=== PATIENT | male | born 1970 | race Caucasian/White ===

== ENCOUNTER 2023-01-11 12:49 | Emergency (ER) | payer BC, SELFPAY ==
[2023-01-11] VITALS (39 sets, daily range): BP systolic 119–144; BP diastolic 72–89; PULSE 56–87; RESP 12–28; TEMP 36.8; O2SAT 98
--- NOTE | 2023-01-11 13:00 | DI.CT_ITS ---
Exam(s) CT HEAD CERVICAL SPINE WO EXAM: CT HEAD CERVICAL SPINE WO CLINICAL HISTORY: Trauma. TECHNIQUE: Imaging Protocol: Axial computed tomography images with coronal and sagittal reformatted images were created and reviewed COMPARISON: No exams were available for comparison FINDINGS: BRAIN: There are no skull fractures nor fluid in the visualized paranasal sinuses. There is no evidence of intracranial hemorrhage, mass effect, or shift of midline structures. There are no extra-axial fluid collections. The ventricles are not enlarged or shifted and there is no blo od within the ventricular system nor within the basal cisterns. CERVICAL SPINE: There is no evidence of fracture nor listhesis. No significant prevertebral soft tissue swelling. Chronic disc space narrowing C5-6. Minimal degenerative changes in the facet joints. There is no significant facet joint malalignment. No significant osseous lesions evident. There is gas in the deep tissues of the lower neck and left supraclavicular region. See separate dic tation. IMPRESSION: No acute intracranial findings on this noninfused CT scan of the brain. No evidence of cervical spine fracture, malalignment, nor acute compromise of the cervical spinal can al. See separate dictations. RADIATION DOSE DELIVERED: 1,544.59mGy.cm Total DLP DATA REPOSITORY: All CT scans at this facility are submitted to the National Radiology Data Registry (NRDR) Dose Index Registry (DIR) with the [employer] (ACR). RADIATION OPTIMIZATION: All CT scans at this facility use at least one of these dose optimization te chniques: automated exposure control; mA and/or kV adjustment per patient size (includes targeted exa ms where dose is matched to clinical indication); or iterative reconstruction.
--- NOTE | 2023-01-11 13:09 | DI.CT_ITS ---
Exam(s) CT THORACIC LUMBAR SPINE REC EXAM: CT THORACIC LUMBAR SPINE REC CLINICAL HISTORY: Trauma TECHNIQUE: COMPARISON: No exams were available for comparison FINDINGS: There are no acute appearing fractures of lumbar vertebral bodies. There is a chronic appearing mild compression fracture of L1 and Schmorl's node invagination the mid aspect of the superior endplate of T11. No acute fractures evident in the lumbar vertebral bodies. No osseous lesions. IMPRESSION: No acute fractures in the lumbosacral spine.
--- NOTE | 2023-01-11 13:09 | DI.CT_ITS ---
Exam(s) CT CHEST/ABD/PEL W EXAM: CT CHEST/ABD/PEL W CLINICAL HISTORY: Trauma. TECHNIQUE: Imaging Protocol: Axial computed tomography images with coronal and sagittal reformatted images were created and reviewed CONTRAST MATERIAL: Intravenous: Omnipaque 350 Contrast volume:100 ml Oral: None COMPARISON: CT CT THORACIC LUMBAR SPINE REC from 01/11/2023 FINDINGS: CHEST: OSSEOUS: There is a mildly displaced fracture of the posterior aspect of the left 4th rib. Also subt le suggestion of fracture of the posterior aspect of the adjacent left 3rd rib. There is air in becky cent deep soft tissues over the left side of the chest wall. LUNGS: There is a prominent left side pneumothorax approximately 50 percent. Also some lung contusio n-consolidation in the lower lobe. The opposite-right lung is clear. No pleural effusions on either side. No pneumothorax on the right side. No rib fractures on the right side.. MEDIASTINUM: No evidence of sternal fracture nor mediastinal hematoma. No incidental hilar nor media stinal adenopathy.. Visualized thyroid unremarkable.There is some air in the left side and posterior aspect of the mediastinum, adjacent to the esophagus. CARDIAC: Heart size is normal. There is no pericardial effusion.Thoracic aorta is intact and there i s no dissection. OSSEOUS: No vertebral body fractures in the thoracic spinal column. Mild anterior wedging of L1 whic h does not appear acute.. ABDOMEN: No ascites and no evidence of mesenteric nor bowel wall hematoma. LIVER: There are no focal hepatic lesions nor dilatation of intrahepatic ducts. No evidence of liver laceration. GALLBLADDER/BILIARY: No obvious gallbladder pathology. CBD is not dilated. PANCREAS: No evidence of pancreatic mass nor dilatation of the pancreatic duct. SPLEEN: Spleen size normal. No laceration. No lesions. Splenic and portal veins are patent. ADRENALS: There are no significant adrenal masses. KIDNEYS: No renal lacerations nor subcapsular hematomas. No cysts nor masses. No calculi. No hydro nephrosis. No hydroureter.. ABDOMINAL AORTA: Abdominal aorta is not enlarged. LYMPH NODES: There is no retroperitoneal nor paraaortic adenopathy. ABDOMINAL WALL: No evidence of significant anterior abdominal wall nor inguinal hernia. GI: There is no evidence of bowel obstruction.The colon is collapsed. Appears to exhibit diffuse fat halo sign which may be exaggerated by the lack of colon distention with oral contrast versus is auto glass technician taran colitis. There are few sigmoid diverticuli but no evidence of acute diverticulitis. PELVIS: LYMPH NODES: There is no intrapelvic nor inguinal adenopathy. GI: No evidence of appendicitis.No evidence of sigmoid diverticulitis. URINARY BLADDER: Normal size. No intraluminal clots. No calculi. No masses. REPRODUCTIVE: Prostate gland not enlarged. Seminal vesicles unremarkable. OSSEOUS: No acute fractures. Mild chronic wedge compression fracture of L1. Schmorl's node invagina tion superior endplate of T12 but no fracture at this level. IMPRESSION: 1. There are fractures of the left 3rd and 4th ribs posteriorly and there is a prominent ipsilateral left pneumothorax, greater than 50 percent. No shift. Some lung contusion noted. Opposite-right tobi ng appears unremarkable. 2. No significant trauma sequelae in the abdomen and pelvis. Nor organ lacerations. No mesenteric n or bowel wall hematoma no ascites. RADIATION DOSE DELIVERED: Total DLP DATA REPOSITORY: All CT scans at this facility are submitted to the National Radiology Data Registry (NRDR) Dose Index Registry (DIR) with the [employer] (ACR). RADIATION OPTIMIZATION: All CT scans at this facility use at least one of these dose optimization te chniques: automated exposure control; mA and/or kV adjustment per patient size (includes targeted exa ms where dose is matched to clinical indication); or iterative reconstruction.
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
[2023-01-11] MEDS: diazePAM 10 MG/2 ML SYR 5 MG IVP (13:20)
[2023-01-11 13:33] LABS: Abs Immature Grans 0.09 10^3/uL (0.0-0.06); Absolute Basophil Count 0.04 10^3/uL (0.0-0.2); Absolute Lymphocyte Count 1.06 10^3/uL (1.2-3.4); Absolute Monocyte Count 0.99 10^3/uL (0.1-0.8); Absolute Neutrophil Count 12.56 10^3/uL (1.2-6.7); Basophils % 0.3; Eosinophils % 0.1; HCT 42.9 % (40.0-50.0); HGB 14.3 g/dL (13.5-17.5); Immature Grans % 0.6; Lymphocytes % 7.2; MCH 31.1 pg (27.0-33.0); MCHC 33.3 % (32.0-36.0); MCV 93 fL (80-95); MPV 11.1 fL (8.0-11.0); Monocytes % 6.7; Neutrophils % 85.1; Platelet Count 191 10^3/uL (130-400); RDW 12.3 % (11.8-14.1); RDW-SD 42.4 fL; WBC 14.76 10^3/uL (4.4-10.8)
[2023-01-11 13:37] LABS: Absolute Eosinophil Count 0.01 10^3/uL (0.0-0.7)
[2023-01-11 13:50] LABS: ALT 35 U/L (16-63); AST 22 U/L (15-37); Albumin 4.1 g/dL (3.4-5.0); Alkaline Phosphatase 47 U/L (46-116); Anion Gap 9.9 mmol/L (3-11); BUN 14 mg/dL (7-18); Bilirubin, Total 0.8 mg/dL (0.2-1.0); CO2 26.1 mmol/L (21.0-32.0); CREATININE 0.9 mg/dL (0.70-1.30); Calcium 9.2 mg/dL (8.5-10.1); Chloride 104 mmol/L (98-107); Estimated GFR 104.05 (mL/min/1.73m2); Glucose 129 mg/dL (74-106); Lipase 19 U/L (16-77); Magnesium 1.9 mg/dL (1.8-2.4); Potassium 3.5 mmol/L (3.5-5.1); Sodium 140 mmol/L (136-145); Total Protein 7.6 g/dL (6.4-8.2); Troponin I < 50 ng/L (<or=60)
[2023-01-11] MEDS: Omnipaque 350 MG/ML 100 ML BTL IJ (14:49)
[2023-01-11] MEDS: Normal Saline - Diluent 50 ML VIAL IJ (14:49)
--- NOTE | 2023-01-11 15:34 | DI.VRAD_ITS ---
PROCEDURE INFORMATION: Exam: CT Thoracic Spine Without Contrast Exam date and time: 01/11/2023 2:24 PM Age: 52 years old Clinical indication: Injury or trauma; Fall TECHNIQUE: Imaging protocol: Computed tomography of the thoracic spine without contrast. COMPARISON: CT HEAD CERVICAL SPINE WO 01/11/2023 2:21 PM FINDINGS: Bones/joints: There are acute nondisplaced fractures of the posterior left 3rd and 4th ribs. Soft tissues: Unremarkable. Lungs: Large left pneumothorax with atelectasis of the collapsed lung. IMPRESSION: No acute thoracic spine fracture. Acute nondisplaced fractures of the posterior left 3rd and 4th ribs. Large left pneumothorax with atelectasis of the collapsed lung. PROCEDURE INFORMATION: Exam: CT Lumbar Spine Without Contrast Exam date and time: 01/11/2023 2:24 PM Age: 52 years old Clinical indication: Injury or trauma; Fall TECHNIQUE: Imaging protocol: Computed tomography of the lumbar spine without contrast. COMPARISON: No relevant prior studies available. FINDINGS: Bones/joints: No acute fracture. Normal alignment. Mild levocurvature L1-L2: No significant disc bulge or herniation. No severe spinal canal stenosis. No significant neural foraminal narrowing. L2-L3: No significant disc bulge or herniation. No severe spinal canal stenosis. No significant neural foraminal narrowing. L3-L4: No significant disc bulge or herniation. No severe spinal canal stenosis. Bilateral foraminal stenosis L4-L5: No significant disc bulge or herniation. No severe spinal canal stenosis. Bilateral foraminal stenosis L5-S1: No significant disc bulge or herniation. No severe spinal canal stenosis. Bilateral foraminal stenosis. Soft tissues: Unremarkable. IMPRESSION: Degenerative changes, without acute abnormality. Dictated and Authenticated by: Екатерина Sprague MD. Ordering:MARY Claudio MD
--- NOTE | 2023-01-11 16:03 | DI.VRAD_ITS ---
Addendum created by Екатерина Sprague MD on 01/11/2023 4:03:18 PM EDT: Findings discussed with MARCOS BEDOLLA 01/11/2023 4:03 PM EDT. Initial report created on 01/11/2023 4:02:42 PM EDT: PROCEDURE INFORMATION: Exam: CT Chest With Contrast; Diagnostic Exam date and time: 01/11/2023 2:24 PM Age: 52 years old Clinical indication: Injury or trauma; Fall TECHNIQUE: Imaging protocol: Diagnostic computed tomography of the chest with contrast. COMPARISON: CT HEAD CERVICAL SPINE WO 01/11/2023 2:21 PM FINDINGS: Lungs: Atelectatic changes in the collapsed left lung. Pleural spaces: There is a moderate left pneumothorax of proximally 50%. Heart: Unremarkable. No cardiomegaly. No pericardial effusion. Lymph nodes: Unremarkable. No enlarged lymph nodes. Vasculature: Unremarkable. No aortic aneurysm. Bones/joints: Acute fracture of the posterior left 3rd and 4th ribs. Soft tissues: Unremarkable. IMPRESSION: Large left pneumothorax. Acute fracture of the posterior left 3rd and 4th ribs. PROCEDURE INFORMATION: Exam: CT Abdomen And Pelvis With Contrast Exam date and time: 01/11/2023 2:24 PM Age: 52 years old Clinical indication: Injury or trauma; Fall TECHNIQUE: Imaging protocol: Computed tomography of the abdomen and pelvis with contrast. COMPARISON: No relevant prior studies available. FINDINGS: Liver: There is hepatomegaly and fatty infiltration of the liver. No mass. Gallbladder and bile ducts: Normal. No calcified stones. No ductal dilation. Pancreas: Normal. No ductal dilation. Spleen: Normal. No splenomegaly. Adrenal glands: Normal. No mass. Kidneys and ureters: Normal. No hydronephrosis. Stomach and bowel: There is diverticular disease of the colon, without evidence of acute diverticulitis. No perforation, or abscess. No signs or history of bleeding provided. No obstruction. No mucosal thickening. Appendix: No evidence of appendicitis. A normal appendix is identified. Intraperitoneal space: Unremarkable. No free air. No significant fluid collection. Vasculature: Unremarkable. No abdominal aortic aneurysm. Lymph nodes: Unremarkable. No enlarged lymph nodes. Urinary bladder: Unremarkable as visualized. Reproductive: Unremarkable as visualized. Bones/joints: Unremarkable. No acute fracture. Soft tissues: There is a small fat-containing supraumbilical ventral hernia. IMPRESSION: No acute findings in the abdomen or pelvis. Additional findings as described. Dictated and Authenticated by: Екатерина Sprague MD. Ordering:MARY Claudio MD
[2023-01-11] MEDS: fentaNYL 100 MCG/2 ML VIAL 50 MCG IVP (16:13)
[2023-01-11] MEDS: LORazepam 2 MG/ML VIAL 0.5 MG IVP (16:15)
[2023-01-11] MEDS: Lidocaine 1% Multi-Dose 50 ML VIAL (17:21)
--- NOTE | 2023-01-11 17:30 | DI.RAD_ITS ---
Exam(s) XR PORTABLE CHEST AP POST LINE EXAM: XR PORTABLE CHEST AP POST LINE CLINICAL HISTORY: s/p chest tube placement. TECHNIQUE: 2D digital imaging was performed. COMPARISON: CT scan earlier same date. FINDINGS: Single AP portable view. There has been interval placement of a pigtail catheter in the lateral left pleural space and there i s significant re-expansion of the left lung evident. Approximately 15 percent remaining pneumothorax . Subcutaneous air is noted over left hemithorax. No new findings in the opposite-right lung. No shift of midline structures. Heart size upper normal. No mediastinal widening. IMPRESSION: Pigtail catheter in lateral left pleural space with significant re-expansion of the left lung. Betzy byrne size of the left pneumothorax is approximately 15 percent DATA REPOSITORY: RADIATION DOSE DELIVERED:
--- NOTE | 2023-01-11 18:16 | PROC.BLANK_ITS ---
Date of service: 01/11/23 Time of Service: 18:16 Procedures Chest Tube Chest Tube 1: Chest Tube Location: anterior axillary line and forth interspace Size of English Tube (mm): 14 Chest Tube Prep: betadine prep and sterile drapes applied Local Anesthetic: Lidocaine 1% Amount of anesthesia used (mL): 10 Incision Made With: #11 blade Post Procedure: sutured to skin and sterile dressing applied Post Procedure CXR?: Yes Patient Tolerated Procedure: Yes Progress: Pigtail catheter for left-sided pneumothorax; patient identified, positioning at 45 degrees, sterile prep, local anesthetic with lidocaine 1%, patient also given fentanyl 50 mcg and Ativan 0.5 mg IV, patient on monitor with nasal cannula in place; patient tolerated procedure, chest tube set to intermittent suction titling with breath, improvement of pneumothorax on repeat x-ray. Patient hemodynamically stable
--- NOTE | 2023-01-11 18:19 | DI.VRAD_ITS ---
PROCEDURE INFORMATION: Exam: XR Chest Exam date and time: 01/11/2023 5:46 PM Age: 52 years old Clinical indication: Device placement; Chest tube TECHNIQUE: Imaging protocol: Radiologic exam of the chest. Views: 1 view. COMPARISON: CT CHEST/ABD/PEL W 01/11/2023 2:24 PM FINDINGS: Tubes, catheters and devices: Left pleural drain in place. Lungs: Right lung appears clear. Mild subsegmental atelectasis in the left mid lung. Pleural spaces: Small left apical pneumothorax appears decreased in size from the CT of earlier the same day. Small amount of pleural fluid or thickening in the left costophrenic angle. Heart/Mediastinum: Unremarkable. No cardiomegaly. Bones/joints: Unremarkable. Soft tissues: Moderate amount of soft tissue emphysema in the left chest wall. IMPRESSION: Interval placement of left pleural drain and significant decreased size of now small left apical pneumothorax. Dictated and Authenticated by: Rommel Ugalde MD. Ordering:LATISHA Sun MD
== END 2023-01-11 18:33 | disposition short-term general hospital (02) ==
PROVIDERS: Emergency Provider Registered Nurse Emergency
DX: S22.42XA Multiple fractures of ribs, left side, initial encounter for closed fracture; S27.0XXA Traumatic pneumothorax, initial encounter; V17.4XXA Pedal cycle driver injured in collision with fixed or stationary object in traffic accident, initial encounter; M54.2 Cervicalgia; M25.511 Pain in right shoulder
CPT/HCPCS: 31500; 71045; 74177; 80053; 83690; 96374; 96375; 99291; 70450; 71260; 72125; 83735; 84484; 85025; J2060; J3010; J3360; J3490